=== PATIENT | female | born 1930 | race Caucasian/White ===

== ENCOUNTER 2016-12-31 20:12 | Emergency (ER) | payer MEDICARE ==
[2016-12-31 21:22] LABS: Hematocrit 38.5 % (30.3-42.9); Hemoglobin 12.5 gm/dl (10.1-14.3); Mean Corpuscular HGB Conc 33 % (30-34); Mean Corpuscular Hemoglobin 31 pg (28-32); Mean Corpuscular Volume 95 fl (79-97); Platelet Count 167 K/mm3 (140-440); Red Blood Count 4.08 M/mm3 (3.65-5.03); Red Cell Distribution Width 15.4 % (13.2-15.2); White Blood Count 13.7 K/mm3 (4.5-11.0)
[2016-12-31 21:45] LABS: Anion Gap 21 mmol/L; BUN/Creatinine Ratio 38.57; Blood Urea Nitrogen 27 mg/dL (7-17); Calcium 9.8 mg/dL (8.4-10.2); Carbon Dioxide 20 mmol/L (22-30); Glucose 116 mg/dL (65-100); Potassium 4.6 mmol/L (3.6-5.0); Sodium 143 mmol/L (137-145)
--- NOTE | 2016-12-31 21:56 | Cat Scan Report ---
FINAL REPORT PROCEDURE: CT HEAD/BRAIN WO CON TECHNIQUE: Computerized tomography of the head was performed without contrast material. HISTORY: HEAD INJURY FROM FALL COMPARISON: No prior studies are available for comparison. FINDINGS: Visualized portions of the paranasal sinuses and mastoid air cells are clear. No calvarial fracture is seen. Cerebral ventricles are normal in size. Minimal chronic small vessel ischemic changes are seen. No acute intracranial hemorrhage or mass effect is seen. IMPRESSION: No acute abnormality is seen.
--- NOTE | 2017-01-01 04:57 | Cat Scan Report ---
FINAL REPORT PROCEDURE: CT CERVICAL SPINE WO CON TECHNIQUE: Computerized tomography of the cervical spine was performed from the skull base to T1 without contrast material. HISTORY: pt fell r/o fx COMPARISON: No prior studies are available for comparison. FINDINGS: There are chronic multilevel degenerative disc changes and bilateral facet hypertrophy. There is slight reversal of cervical lordosis. There are no fractures. There is no significant bony spinal stenosis. Skull base and foramen magnum are intact. Prevertebral soft tissues are normal in thickness. IMPRESSION: There are chronic and advanced degenerative changes. There is no fracture or malalignment..
[2017-01-01 05:03] LABS: Bilirubin,Urine NEG (Negative); Blood,Urine MOD (Negative); Ketones,Urine NEG (Negative); Leukocyte Esterase,Urine SM (Negative); Mucus,Urine FEW /HPF; Nitrite,Urine NEG (Negative); Urobilinogen,Urine < 2.0 mg/dL (<2.0)
[2017-01-01] MEDS ORDERED: XYLOCAINE 1% 20 mL INFILTRATI ONE (06:26)
--- NOTE | 2017-01-01 06:31 | Emergency Department Report ---
ED Head Trauma HPI - General Chief complaint: Head Injury Stated complaint: FALL/HEAD INJURY Time Seen by Provider: 01/01/17 06:20 Source: patient, family, RN notes reviewed Mode of arrival: Wheelchair Limitations: No Limitations - History of Present Illness Initial comments: 86-year-old female presents to the emergency department after a fall. Patient states that at approximately 2 PM yesterday afternoon she slipped on a liquid in her kitchen and fell to the floor. Patient states she hit her head on the floor. There was no loss of consciousness. Patient denies chest pain, shortness of breath, palpitations, or dizziness prior to the fall. Patient states that she was on the floor for several hours before family found her. She was initially complaining of generalized achiness, but states after taking Tylenol this has greatly improved. There are no other complaints. MD Complaint: fall -: Sudden, This afternoon Time: 14:00 Mechanism of Injury: mechanical fall Location: occipital Loss of Consciousness: no Previous Trauma to this Area: No Place: home Radiation: none Severity: mild Severity scale (0 -10): 1 Quality: aching Consistency: constant Provoking factors: none known Other Injuries: none Associated Symptoms: denies other symptoms - Related Data Allergies/Adverse reactions: Allergies Allergy/AdvReac Type Severity Reaction Status Date / Time codeine Allergy Unknown Verified 12/31/16 20:47 ED Review of Systems ROS: Stated complaint: FALL/HEAD INJURY Other details as noted in HPI Comment: All other systems reviewed and negative Skin: as per HPI (laceration) ED Past Medical Hx - Past Medical History Previous Medical History?: Yes Hx Hypertension: Yes Hx Arthritis: Yes Additional medical history: HIGH CHOLESTEROL, ANEMIA - Surgical History Past Surgical History?: Yes Additional Surgical History: PARTIAL HYSTERECTOMY, TONSILLECTOMY - Family History Family history: no significant - Social History Smoking Status: Never Smoker Substance Use Type: None ED Physical Exam - General Limitations: No Limitations General appearance: alert, in no apparent distress - Head Head exam: Present: normocephalic, other (1 cm laceration to the occipital scalp. No active bleeding noted.) - Eye Eye exam: Present: normal appearance, PERRL, EOMI - ENT ENT exam: Present: normal exam, normal orophraynx, mucous membranes moist - Neck Neck exam: Present: normal inspection, full ROM. Absent: tenderness - Respiratory Respiratory exam: Present: normal lung sounds bilaterally. Absent: respiratory distress - Cardiovascular Cardiovascular Exam: Present: regular rate, normal rhythm, normal heart sounds - GI/Abdominal GI/Abdominal exam: Present: soft, normal bowel sounds. Absent: distended, tenderness - Extremities Exam Extremities exam: Present: normal inspection, full ROM. Absent: tenderness - Back Exam Back exam: Present: normal inspection, full ROM. Absent: tenderness - Neurological Exam Neurological exam: Present: alert, oriented X3. Absent: motor sensory deficit - Skin Skin exam: Present: warm, dry ED Course Vital Signs 12/31/16 01/01/17 01/01/17 20:43 02:24 05:04 Temperature 76 F L 98.1 F 97.8 F Pulse Rate 76 66 68 Respiratory 18 14 15 Rate Blood Pressure 192/81 Blood Pressure 156/82 149/84 [Left] O2 Sat by Pulse 98 96 97 Oximetry - Laceration /Wound Repair Posterior Occipital Wound Location: head Wound Length (cm): 1 Wound's Depth, Shape: superficial Wound Explored: clean Anesthesia: 1% Lidocaine Volume Anesthetic (ccs): 1 Progress: Wound repaired with 2 veronique. Patient tolerated procedure well. - Lab Data Result diagrams: 12/31/16 21:00 12/31/16 21:00 Lab Results 12/31/16 12/31/16 01/01/17 Range/Units 21:00 21:00 04:35 WBC 13.7 H (4.5-11.0) K/mm3 RBC 4.08 (3.65-5.03) M/mm3 Hgb 12.5 (10.1-14.3) gm/dl Hct 38.5 (30.3-42.9) % MCV 95 (79-97) fl MCH 31 (28-32) pg MCHC 33 (30-34) % RDW 15.4 H (13.2-15.2) % Plt Count 167 (140-440) K/mm3 Sodium 143 (137-145) mmol/L Potassium 4.6 (3.6-5.0) mmol/L Chloride 107.0 (98-107) mmol/L Carbon Dioxide 20 L (22-30) mmol/L Anion Gap 21 mmol/L BUN 27 H (7-17) mg/dL Creatinine 0.7 (0.7-1.2) mg/dL Estimated GFR > 60 ml/min BUN/Creatinine Ratio 38.57 % Glucose 116 H (65-100) mg/dL Calcium 9.8 (8.4-10.2) mg/dL Urine Color Yellow (Yellow) Urine Turbidity Clear (Clear) Urine pH 5.0 (5.0-7.0) Ur Specific [place] 1.017 (1.003-1.030) Urine Protein 100 mg/dl (Negative) mg/dL Urine Glucose (UA) Neg (Negative) mg/dL Urine Ketones Neg (Negative) mg/dL Urine Blood Mod (Negative) Urine Nitrite Neg (Negative) Urine Bilirubin Neg (Negative) Urine Urobilinogen < 2.0 (<2.0) mg/dL Ur Leukocyte Esterase Sm (Negative) Urine WBC (Auto) 5.0 (0.0-6.0) /HPF Urine RBC (Auto) 4.0 (0.0-6.0) /HPF U Epithel Cells (Auto) 2.0 (0-13.0) /HPF Urine Mucus Few /HPF - EKG Data -: EKG Interpreted by Id EKG shows normal: sinus rhythm, axis, intervals, QRS complexes Rate: normal When compared to previous EKG there are: previous EKG unavailable Interpretation: nonspecific ST-T wave kym - Radiology Data Radiology results: report reviewed CT of the head and cervical spine revealed no acute traumatic injuries. - Medical Decision Making Lab and imaging results reviewed and discussed with the patient and family. Laceration has been repaired, see procedure note. Patient has a follow-up with her primary care physician later this morning. Patient will be discharged home at this time. - Differential Diagnosis laceration, contusion, SDH Critical care attestation.: If time is entered above; I have spent that time in minutes in the direct care of this critically ill patient, excluding procedure time. ED Disposition Clinical Impression: Fall from standing Qualifiers: Encounter type: initial encounter Qualified Code(s): W19.XXXA - Unspecified fall, initial encounter Occipital scalp laceration Qualifiers: Encounter type: initial encounter Qualified Code(s): S01.01XA - Laceration without foreign body of scalp, initial encounter Disposition: DISCHARGED TO HOME OR SELFCARE Is pt being admited?: No Condition: Stable Instructions: Laceration (ED) Additional Instructions: Continue taking all medications as directed. You may use Tylenol or ibuprofen for pain. The veronique need to come out in 5-7 days. This may be done in your doctor's office, or you may return to the emergency department. If symptoms worsen, or if new symptoms develop, return to the emergency department. Referrals: PRIMARY CARE, [Primary Care Provider] - 3-5 Days Time of Disposition: 06:44
[2017-01-01 07:03] VITALS: BP 145/82
== END 2017-01-01 07:03 | disposition home or self-care (01) ==
LOC: ED 20:12
DX: S01.01XA Laceration without foreign body of scalp, initial encounter (principal); I10 Essential (primary) hypertension; M19.90 Unspecified osteoarthritis, unspecified site; D64.9 Anemia, unspecified; E78.5 Hyperlipidemia, unspecified; Z88.6 Allergy status to analgesic agent; W01.10XA Fall on same level from slipping, tripping and stumbling with subsequent striking against unspecified object, initial encounter; Y93.89 Activity, other specified; Y99.9 Unspecified external cause status; Y92.090 Kitchen in other non-institutional residence as the place of occurrence of the external cause
CPT/HCPCS: 36415; 70450; 72125; 80048; 81001; 85027; 93005; 93010